=== PATIENT | female | born 1925 | race Asian ===

== ENCOUNTER → 2016-09-19 | Outpatient (CLI) | payer MEDICARE, MEDICAID ==
--- NOTE | 2016-09-19 10:37 | RADIOLOGY REPORT (SQ) ---
EXAM DESCRIPTION: CT HEAD WITHOUT COMPLETED DATE/TIME: 09/19/2016 10:27 am REASON FOR STUDY: HEADACHE (R51) R51 HEADACHE COMPARISON: None. TECHNIQUE: Axial images acquired through the brain without intravenous contrast. Images reviewed wi th bone, brain and subdural windows. Images stored on PACS. All CT scanners at this facility use dose modulation, iterative reconstruction, and/or weight based d osing when appropriate to reduce radiation dose to as low as reasonably achievable (ALARA). [facility]: Dose Right [facility]: CareDose [facility]: Dose Right [facility]: Teradose 4D [facility]: Smart Red [facility] RADIATION DOSE: Up-to-date CT equipment and radiation dose reduction techniques were employed. CTDIv ol: 49.0 mGy. DLP: 881 mGy-cm. mGy. LIMITATIONS: None. FINDINGS: VENTRICLES: Prominent. CEREBRUM: No masses. No hemorrhage. No midline shift. Areas of low density in the white matter mos t likely due to chronic micro-vascular ischemic change. 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 CEREBELLUM: No masses. No hemorrhage. No alteration of density. No evidence for acute infarction. EXTRAAXIAL SPACES: Mild age-related involutional change. No fluid collections. No masses. ORBITS AND GLOBE: No intra- or extraconal masses. Normal contour of globe without masses. CALVARIUM: No fracture. PARANASAL SINUSES: No fluid or mucosal thickening. SOFT TISSUES: No mass or hematoma. OTHER: No other significant finding. IMPRESSION: MILD CHRONIC CHANGES OF ATROPHY AND MICROVASCULAR ISCHEMIA. NO ACUTE PROCESS. TECHNICAL DOCUMENTATION: JOB ID: [id number] Quality ID # [id number]: Final reports with documentation of one or more dose reduction techniques (e.g., Au tomated exposure control, adjustment of the mA and/or kV according to patient size, use of iterative reconstruction technique) 2010 [employer]- All Rights Reserved
--- NOTE | 2016-09-19 11:02 | RADIOLOGY REPORT (SQ) ---
EXAM DESCRIPTION: CHEST PA/LAT COMPLETED DATE/TIME: 09/19/2016 10:36 am REASON FOR STUDY: CHEST PAIN (R07.9) COMPARISON: None. EXAM PARAMETERS: NUMBER OF VIEWS: two views TECHNIQUE: Digital Frontal and Lateral radiographic views of the chest acquired. RADIATION DOSE: NA LIMITATIONS: none FINDINGS: LUNGS AND PLEURA: No opacities, masses or pneumothorax. No pleural effusion. MEDIASTINUM AND HILAR STRUCTURES: No masses or contour abnormalities. HEART AND VASCULAR STRUCTURES: Heart normal size. No evidence for failure. Tortuous calcified thora cic aorta is identified BONES: No acute findings. HARDWARE: None in the chest. OTHER: No other significant finding. IMPRESSION: NO SIGNIFICANT RADIOGRAPHIC FINDING IN THE CHEST. TECHNICAL DOCUMENTATION: JOB ID: [id number] [employer]- All Rights Reserved
--- NOTE | 2016-09-19 11:06 | RADIOLOGY REPORT (SQ) ---
EXAM DESCRIPTION: RIBS RIGHT W/O PA CHEST COMPLETED DATE/TIME: 09/19/2016 10:36 am REASON FOR STUDY: CHEST PAIN (R07.9) R51 HEADACHE COMPARISON: None. NUMBER OF VIEWS: Two views TECHNIQUE: Images acquired of the right ribs in the area of focal concern. LIMITATIONS: None. FINDINGS: RIBS: No acute displaced fracture. No worrisome bone lesions. LUNGS: Limited exam. No obvious pneumothorax. No pleural effusion. OTHER: No other significant finding. IMPRESSION: NO ACUTE DISPLACED RIB FRACTURE. COMMENT: SITE OF TRAUMA/COMPLAINT MARKED/STAMP COMPLETED: No TECHNICAL DOCUMENTATION: JOB ID: [id number] [employer]- All Rights Reserved
== END ==
LOC: RAD 09:59
PROVIDERS: ATTEND Internal Medicine
DX: R51 Headache (principal); R07.9 Chest pain, unspecified
CPT/HCPCS: 70450; 71020

== ENCOUNTER 2016-09-29 17:49 | Inpatient (IN) | payer MEDICARE, MEDICAID ==
[2016-09-29] MEDS ORDERED: ONDANSETRON HCL INJ/PF 4 MG/2 ML SDV IV ONE (18:33)
[2016-09-29] MEDS ORDERED: NORMAL SALINE 1000 ML 250 ML IV ONE (18:33)
--- NOTE | 2016-09-29 18:33 | ER Document Report ---
ED General - General Information source: Patient TRAVEL OUTSIDE OF THE [place] IN LAST 30 DAYS: No - HPI Associated symptoms: Other - see above <TI MAJANO - Last Filed: 09/29/16 20:50> <KEVIN EVANS - Last Filed: 09/29/16 22:32> - General Stated Complaint: GENERAL WEAKNESS/COFUSION Time Seen by Provider: 09/29/16 18:13 Notes: Patient is an 89 year old female who presents to the ED with complaints of dizziness, weakness, nausea and superpubic abominal pain with onset today. History is limited. (TI MAJANO) - Related Data Allergies/Adverse Reactions: No Known Allergies Allergy (Verified 10/23/13 19:15) Home Medications: Current Home Medications Hydrochlorothiazide 25 mg PO DAILY 09/29/16 [History] Losartan Potassium [Cozaar 100 mg Tablet] 100 mg PO DAILY 09/29/16 [History] Past Medical History - General Information source: Patient - Social History Smoking Status: Never Smoker Frequency of alcohol use: None Drug Abuse: None Family History: Reviewed & Not Pertinent - Past Medical History Cardiac Medical History: Reports: Hx Coronary Artery Disease, Hx Hypertension Psychiatric Medical History: Denies: Hx Depression - Immunizations Hx Diphtheria, Pertussis, Tetanus Vaccination: Yes Hx Pneumococcal Vaccination: 10/25/13 <TI MAJANO - Last Filed: 09/29/16 20:50> Review of Systems - Review of Systems Constitutional: See HPI, Weakness EENT: No symptoms reported Cardiovascular: See HPI, Dizziness Respiratory: No symptoms reported Gastrointestinal: See HPI, Abdominal pain, Nausea Genitourinary: No symptoms reported Female Genitourinary: No symptoms reported Musculoskeletal: No symptoms reported Skin: No symptoms reported Hematologic/Lymphatic: No symptoms reported Neurological/Psychological: See HPI, Weakness <TI MAJANO - Last Filed: 09/29/16 20:50> Physical Exam <TI MAJANO - Last Filed: 09/29/16 20:50> <KEVIN EVANS - Last Filed: 09/29/16 22:32> - Vital signs Vitals: Resp Pulse Ox 22 H 99 09/29/16 18:28 09/29/16 18:28 - Notes Notes: GENERAL: Well-appearing, well nourished and in no acute distress. HEAD: Normocephalic, atraumatic. Eyes: Pupils equal, round, and reactive to light. Extraocular movements intact. ENT: Oral mucosa moist, tongue midline. NECK: Full range of motion. Supple without lymphadenopathy. LUNGS: Clear to auscultation bilaterally, no wheezes, rales, or rhonchi. No respiratory distress. HEART: Regular rate and rhythm. No murmurs, gallops, or rubs. ABDOMEN: Tender in lower abdomen. Non-distended. Bowel sounds present in all 4 quadrants but decreased. EXTREMITIES: Normal ROM. No Edema. NEUROLOGICAL: Alert and oriented x3. Normal speech. No focal neurological deficits. PSYCH: Normal affect, normal mood. SKIN: Skin is warm and dry to the touch. (TI MAJANO) Course - Laboratory Result Diagrams: 09/29/16 18:55 09/29/16 18:55 - Consults Dr. Pereira Time consulted: 20:50 <TI MAJANO - Last Filed: 09/29/16 20:50> - Laboratory Result Diagrams: 09/29/16 18:55 09/29/16 18:55 - Diagnostic Test Radiology reviewed: Image reviewed, Reports reviewed - Acute abdominal series shows constipation - EKG Interpretation by Wi EKG shows normal: Sinus rhythm, [place], Intervals, ST-T Waves. abnormal: QRS Complexes - Inferior and anterior Q wave Rate: Normal - 95 Rhythm: NSR When compared to previous EKG there are: No significant change <KEVIN EVANS - Last Filed: 09/29/16 22:32> - Vital Signs Vital signs: Temp Pulse Resp BP Pulse Ox 26 H 122/53 L 99 09/29/16 22:01 09/29/16 22:01 09/29/16 22:01 - Laboratory Laboratory results interpreted by nd: 09/29/16 09/29/16 09/29/16 18:55 18:55 18:55 WBC 14.3 H RBC 3.43 L Hgb 11.2 L Hct 32.6 L Seg Neuts % (Manual) 91 H Lymphocytes % (Manual) 2 L Abs Neuts (Manual) 13.4 H Abs Lymphs (Manual) 0.3 L Sodium 120.1 L* Chloride 87 L Carbon Dioxide 20 L BUN 28 H Glucose 144 H Serum Osmolality Magnesium Total Bilirubin 1.5 H AST 42 H Creatine Kinase 655 H CK-MB (CK-2) 7.60 H Amylase TSH Urine Protein Urine Ketones Urine Blood Urine Nitrite Ur Leukocyte Esterase Protein/Creatinin Ratio Urine Total Protein 09/29/16 09/29/16 09/29/16 18:55 18:55 18:55 WBC RBC Hgb Hct Seg Neuts % (Manual) Lymphocytes % (Manual) Abs Neuts (Manual) Abs Lymphs (Manual) Sodium Chloride Carbon Dioxide BUN Glucose Serum Osmolality 258 L Magnesium 1.5 L Total Bilirubin AST Creatine Kinase CK-MB (CK-2) Amylase 116 H TSH 6.71 H Urine Protein Urine Ketones Urine Blood Urine Nitrite Ur Leukocyte Esterase Protein/Creatinin Ratio Urine Total Protein 09/29/16 09/29/16 19:22 19:22 WBC RBC Hgb Hct Seg Neuts % (Manual) Lymphocytes % (Manual) Abs Neuts (Manual) Abs Lymphs (Manual) Sodium Chloride Carbon Dioxide BUN Glucose Serum Osmolality Magnesium Total Bilirubin AST Creatine Kinase CK-MB (CK-2) Amylase TSH Urine Protein 30 H Urine Ketones 20 H Urine Blood SMALL H Urine Nitrite POSITIVE H Ur Leukocyte Esterase SMALL H Protein/Creatinin Ratio 0.9 H Urine Total Protein 55.2 H - Consults Dr. Pereira Reason for consultation: 09/29/16 20:50 Discussed patient. Patient is accepted for admission to IMCU. (TI MAJANO) Discharge <TI MAJANO - Last Filed: 09/29/16 20:50> - Discharge Admitting Provider: [facility] Unit Admitted: IMCU <KEVIN EVANS - Last Filed: 09/29/16 22:32> - Discharge Clinical Impression: Hyponatremia, Confusion Urinary tract infection Qualifiers: Urinary tract infection type: site unspecified Hematuria presence: with hematuria Qualified Code(s): N39.0 - Urinary tract infection, site not specified ; R31.9 - Hematuria, unspecified Abdominal pain Qualifiers: Abdominal location: lower abdomen, unspecified Qualified Code(s): R10.30 - Lower abdominal pain, unspecified Constipation Qualifiers: Constipation type: unspecified constipation type Qualified Code(s): K59.00 - Constipation, unspecified Rhabdomyolysis Qualifiers: Rhabdomyolysis type: non-traumatic Qualified Code(s): M62.82 - Rhabdomyolysis Condition: Stable Disposition: ADMITTED INPATIENT Scribe Attestation: 09/29/16 20:49 I personally performed the services described in the documentation, reviewed and edited the documentation which was dictated to the scribe in my presence, and it accurately records my words and actions. (KEVIN EVANS) Scribe Documentation - Scribe Written by Maryam:: maryam Terrazas, 09/29/2016, 1839 acting as scribe for :: [place] <TI MAJANO - Last Filed: 09/29/16 20:50>
[2016-09-29 19:39] LABS: ALANINE AMINOTRANSFERASE 34 U/L (9-52); ALBUMIN 3.7 g/dL (3.5-5.0); ALKALINE PHOSPHATASE 86 U/L (38-126); ASPARTATE AMINO TRANSFERASE 42 U/L (14-36); BILIRUBIN,DIRECT 0.3 mg/dL (0.0-0.4); BILIRUBIN,TOTAL 1.5 mg/dL (0.2-1.3); BLOOD UREA NITROGEN 28 mg/dL (7-20); CALCIUM 8.4 mg/dL (8.4-10.2); CARBON DIOXIDE 20 mmol/L (22-30); CHLORIDE 87 mmol/L (98-107); CREATINE KINASE 655 U/L (30-135); CREATININE RESULT 0.81 mg/dL (0.52-1.25); GLUCOSE 144 mg/dL (75-110); POTASSIUM 4.2 mmol/L (3.6-5.0); TOTAL PROTEIN 6.7 g/dL (6.3-8.2)
[2016-09-29 19:40] LABS: APPEARANCE,URINE CLOUDY; BILIRUBIN,URINE NEGATIVE (NEGATIVE); GLUCOSE, URINE NEGATIVE (NEGATIVE); KETONES,URINE 20 mg/dL (NEGATIVE); LEUKOCYTE ESTERASE,URINE SMALL (NEGATIVE); NITRITE,URINE POSITIVE (NEGATIVE); PROTEIN,URINE 30 mg/dL (NEGATIVE); URINE SPECIFIC GRAVITY 1.012; UROBILINOGEN,URINE NEGATIVE mg/dL (<2.0)
[2016-09-29 19:42] LABS: HEMATOCRIT 32.6 % (36.0-47.0); HEMOGLOBIN 11.2 g/dL (12.0-15.5); MEAN CORPUSCULAR HEMOGLOBIN 32.7 pg (27.0-33.4); MEAN CORPUSCULAR HGB CONC 34.4 g/dL (32.0-36.0); MEAN CORPUSCULAR VOLUME 95 fl (80-97); RED BLOOD COUNT 3.43 10^6/uL (3.72-5.28); RED CELL DISTRIBUTION WIDTH 13.9 % (11.5-14.0); WHITE BLOOD COUNT 14.3 10^3/uL (4.0-10.5)
[2016-09-29 19:43] LABS: ANION GAP 13 (5-19)
[2016-09-29 19:45] LABS: BAND NEUTROPHILS % (MANUAL) 3 % (3-5); BASOPHILS % (MANUAL) 0 % (0-2); EOSINOPHILS % (MANUAL) 0 % (0-6); LYMPHOCYTES % (MANUAL) 2 % (13-45); TOTAL CELLS COUNTED 100
[2016-09-29 19:46] LABS: PLATELET CLUMPS PRESENT; RBC MORPHOLOGY COMMENT NORMO-CYTIC/CHROMIC
[2016-09-29 19:51] LABS: CREATINE KINASE MB 7.6 ng/mL (<4.55)
[2016-09-29 20:15] LABS: SODIUM 120.1 mmol/L (137-145); TROPONIN I 0.04 ng/mL
--- NOTE | 2016-09-29 20:21 | RADIOLOGY REPORT (SQ) ---
EXAM DESCRIPTION: ACUTE ABDOMEN SERIES COMPLETED DATE/TIME: 09/29/2016 7:54 pm REASON FOR STUDY: NAUSEA, DIZZY, ABD PAIN COMPARISON: None. NUMBER OF VIEWS: Three views. TECHNIQUE: Frontal chest, supine abdomen and upright/decubitus abdomen radiographic images acquired. LIMITATIONS: None. FINDINGS: CHEST: Lungs clear of infiltrates. FREE AIR: None. No abnormal gas collections. BOWEL GAS PATTERN: Nonobstructive pattern. No dilated loops or air fluid levels. CALCIFICATIONS: No suspicious calcifications. HARDWARE: None in the abdomen. SOFT TISSUES: No gross mass or suggestion of organomegaly. BONES: No acute fracture. No worrisome bone lesions. OTHER: No other significant finding. IMPRESSION: NO RADIOGRAPHIC EVIDENCE FOR ACUTE ABDOMINAL DISEASE. TECHNICAL DOCUMENTATION: JOB ID: [id number] [employer]- All Rights Reserved
[2016-09-29] MEDS ORDERED: CEFTRIAXONE 1 GM/D5W RTU 50 ML IV ONE (20:49)
[2016-09-29 21:27] LABS: PROTHROMBIN TIME 14.3 SEC (11.4-15.4)
[2016-09-29 21:28] LABS: PARTIAL THROMBOPLASTIN TIME 33.4 SEC (23.5-35.8)
[2016-09-29 21:42] LABS: URINE CREATININE 59.8 mg/dL (15-278); URINE PROTEIN 55.2 mg/dL (<12)
[2016-09-29 21:55] LABS: LIPASE 101.5 U/L (23-300); MAGNESIUM 1.5 mg/dL (1.6-2.3); PHOSPHORUS 3.1 mg/dL (2.5-4.5)
[2016-09-29 22:26] LABS: THYROID STIMULATING HORMONE 6.71 uIU/mL (0.47-4.68)
[2016-09-29 22:32] LABS: CREATINE KINASE MB 8.15 ng/mL (<4.55); TROPONIN I 0.048 ng/mL
[2016-09-29 23:16] LABS: URINE POTASSIUM 80.6 mmol/L (22-164)
[2016-09-30 04:35] LABS: HEMATOCRIT 32.9 % (36.0-47.0); HEMOGLOBIN 11.5 g/dL (12.0-15.5); HGB HCT DIFFERENCE 1.6; MEAN CORPUSCULAR VOLUME 97 fl (80-97); RED BLOOD COUNT 3.39 10^6/uL (3.72-5.28); RED CELL DISTRIBUTION WIDTH 13.8 % (11.5-14.0); WHITE BLOOD COUNT 15.4 10^3/uL (4.0-10.5)
[2016-09-30 04:41] LABS: ALANINE AMINOTRANSFERASE 34 U/L (9-52); ALBUMIN 3.2 g/dL (3.5-5.0); ALKALINE PHOSPHATASE 72 U/L (38-126); ANION GAP 11 (5-19); ASPARTATE AMINO TRANSFERASE 40 U/L (14-36); BILIRUBIN,DIRECT 0.3 mg/dL (0.0-0.4); BILIRUBIN,TOTAL 1.4 mg/dL (0.2-1.3); BLOOD UREA NITROGEN 24 mg/dL (7-20); CALCIUM 8.1 mg/dL (8.4-10.2); CARBON DIOXIDE 20 mmol/L (22-30); CHLORIDE 90 mmol/L (98-107); CHOLESTEROL 161.66 mg/dL (0-200); CREATINE KINASE 707 U/L (30-135); CREATININE RESULT 0.77 mg/dL (0.52-1.25); Direct HDL 66 mg/dL (>40); GLUCOSE 137 mg/dL (75-110); TOTAL PROTEIN 6.2 g/dL (6.3-8.2); TRIGLYCERIDES 42 mg/dL (<150)
[2016-09-30 04:53] LABS: CREATINE KINASE MB 8.73 ng/mL (<4.55); DIRECT LDL 88 mg/dL (<100); TROPONIN I 0.035 ng/mL
[2016-09-30 04:59] LABS: BAND NEUTROPHILS % (MANUAL) 8 % (3-5); BASOPHILS % (MANUAL) 0 % (0-2); EOSINOPHILS % (MANUAL) 0 % (0-6); LYMPHOCYTES % (MANUAL) 3 % (13-45); TOTAL CELLS COUNTED 100
[2016-09-30 05:02] LABS: RBC MORPHOLOGY COMMENT NORMO-CYTIC/CHROMIC; TOXIC GRANULATION SLIGHT; TOXIC VACUOLATION PRESENT
--- NOTE | 2016-09-30 08:09 | EKG REPORT ---
SEVERITY:- ABNORMAL ECG - SINUS RHYTHM INFERIOR INFARCT, OLD CONSIDER ANTERIOR INFARCT BORDERLINE PROLONGED QT INTERVAL : Confirmed by: Kt Shannon MD 30-Sep-2016 08:08:39
[2016-09-30] MEDS: CEFTRIAXONE 1 GM/D5W RTU 50 ML IV SCH (09:16)
[2016-09-30] MEDS: NORMAL SALINE 1000 ML 1,000 ML IV PRN (09:24)
[2016-09-30] MEDS: PHENAZOPYRIDINE HCL 200 MG TABLET PO SCH ×3 (09:31→17:38)
[2016-09-30 09:59] LABS: CREATINE KINASE MB 10.2 ng/mL (<4.55); TROPONIN I 0.03 ng/mL
[2016-09-30] MEDS: ENOXAPARIN SODIUM INJ 40 MG/0.4 ML DISP.SYRIN SUBCUT SCH (11:45)
[2016-09-30] MEDS ORDERED: LEVOTHYROXINE SODIUM 0.025 MG TABLET PO ONE (17:30)
[2016-09-30] MEDS ORDERED: MAGNESIUM OXIDE 400 MG TABLET PO ONE (20:00)
--- NOTE | 2016-09-30 20:42 | PDOC H&P ---
History of Present Illness Admission Date/PCP: 09/29/16 21:06 EBONY CHATTERJEE MD History of Present Illness: KAROLINE KITCHEN is a 89 year old female, She has a history of hypertension, generalized osteoarthritis, mild cognitive impairment she was brought to the emergency room for evaluation of dizziness, weakness, nausea and suprapubic abdominal pain with 1 day duration. She is a poor historian so history taking was a challenge in the emergency room she had blood drawn for metabolic and hemogram evaluation, the serum sodium was 120.1, WBC was 14.3 the urine drug screen was positive for protein, ketones, nitrites, blood and the leukocyte esterase test was positive as well I was called from the emergency room about this patient and the need for hospital admission. On examination of this patient, she is clinically euvolemic, the serum osmolality was low at 258. 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 both patient is pleasantly confused on the sodium is 120 with UTI Past Medical History Cardiac Medical History: Reports: Hypertension Musculoskeltal Medical History: Reports: Arthritis Social History Smoking Status: Never Smoker Frequency of Alcohol Use: None Hx Recreational Drug Use: No Hx Prescription Drug Abuse: No Family History Family History: Reviewed & Not Pertinent Parental Family History Reviewed: Yes Children Family History Reviewed: Yes Sibling(s) Family History Reviewed.: Yes Medication/Allergy Home Medications: Hydrochlorothiazide 25 mg PO DAILY 09/29/16 Losartan Potassium [Cozaar 100 mg Tablet] 100 mg PO DAILY 09/29/16 Allergies/Adverse Reactions: No Known Allergies Allergy (Verified 10/23/13 19:15) Review of Systems ROS unobtainable: Due to mental status Gastrointestinal: PRESENT: abdominal pain Physical Exam Vital Signs: Temp Pulse Resp BP Pulse Ox 98.6 F 74 18 128/40 H 95 09/30/16 15:15 09/30/16 15:15 09/30/16 15:15 09/30/16 15:15 09/30/16 15:15 Intake & Output 09/29/16 09/30/16 10/01/16 06:59 06:59 06:59 Intake Total 350 490 Balance 350 490 Weight 56.8 kg General appearance: PRESENT: no acute distress Head exam: PRESENT: atraumatic, normocephalic Eye exam: PRESENT: conjunctiva pink, EOMI, PERRLA Mouth exam: PRESENT: moist, tongue midline Neck exam: PRESENT: full ROM Respiratory exam: PRESENT: clear to auscultation noe Cardiovascular exam: PRESENT: RRR, +S1, +S2 Pulses: PRESENT: normal dorsalis pedis pul, +2 pedal pulses bilateral Vascular exam: PRESENT: normal capillary refill GI/Abdominal exam: PRESENT: normal bowel sounds, soft, tenderness - There is tenderness in the suprapubic area of the abdomen Rectal exam: PRESENT: deferred Extremities exam: ABSENT: full ROM, left AKA, right AKA, left BKA, right BKA, calf tenderness, joint swelling, pedal edema, tenderness, other Neurological exam: PRESENT: alert Psychiatric exam: ABSENT: homicidal ideation, suicidal ideation Skin exam: PRESENT: dry, intact, warm. ABSENT: cyanosis, rash Results Laboratory Results: 09/30/16 03:45 09/30/16 03:45 09/29/16 09/30/16 09/30/16 21:40 03:45 03:45 WBC 15.4 H RBC 3.39 L Hgb 11.5 L Hct 32.9 L MCV 97 MCH 34.0 H MCHC 35.0 RDW 13.8 Plt Count 137 L Seg Neutrophils % Not Reportable Lymphocytes % Not Reportable Monocytes % Not Reportable Eosinophils % Not Reportable Basophils % Not Reportable Absolute Neutrophils Not Reportable Absolute Lymphocytes Not Reportable Absolute Monocytes Not Reportable Absolute Eosinophils Not Reportable Absolute Basophils Not Reportable Sodium 121.0 L Potassium 4.0 Chloride 90 L Carbon Dioxide 20 L Anion Gap 11 BUN 24 H Creatinine 0.77 Est GFR ( Amer) > 60 Est GFR (Non-Af Amer) > 60 Glucose 137 H Calcium 8.1 L Total Bilirubin 1.4 H AST 40 H ALT 34 Alkaline Phosphatase 72 Ammonia < 8.7 L Total Protein 6.2 L Albumin 3.2 L Triglycerides 42 Cholesterol 161.66 LDL Cholesterol Direct 88 VLDL Cholesterol 8.0 L HDL Cholesterol 66 09/29/16 09/29/16 09/30/16 21:40 21:40 03:45 Creatine Kinase 695 H CK-MB (CK-2) 8.15 H 8.73 H Troponin I 0.048 0.035 09/30/16 09/30/16 09/30/16 03:45 09:24 09:24 Creatine Kinase 707 H 645 H CK-MB (CK-2) 10.20 H Troponin I 0.030 Impressions: Acute Abdomen Series 09/29/16 18:34 IMPRESSION: NO RADIOGRAPHIC EVIDENCE FOR ACUTE ABDOMINAL DISEASE. 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
[2016-10-01 06:16] LABS: ABSOLUTE EOSINOPHILS # (AUTO) 0.1 10^3/uL (0.0-0.6); BASOPHILS % (AUTO) 0.1 % (0-2); EOSINOPHILS % (AUTO) 0.9 % (0-6); LYMPHOCYTES % (AUTO) 9.3 % (13-45); MEAN CORPUSCULAR HEMOGLOBIN 33.7 pg (27.0-33.4); MEAN CORPUSCULAR HGB CONC 34.3 g/dL (32.0-36.0); MEAN CORPUSCULAR VOLUME 98 fl (80-97); MONOCYTES % (AUTO) 9.1 % (3-13); RED BLOOD COUNT 3.26 10^6/uL (3.72-5.28); RED CELL DISTRIBUTION WIDTH 14.2 % (11.5-14.0); SEGMENTED NEUTROPHILS % (AUTO) 80.6 % (42-78); WHITE BLOOD COUNT 11.2 10^3/uL (4.0-10.5)
[2016-10-01 06:32] LABS: ALANINE AMINOTRANSFERASE 33 U/L (9-52); ALBUMIN 2.9 g/dL (3.5-5.0); ALKALINE PHOSPHATASE 68 U/L (38-126); ANION GAP 11 (5-19); ASPARTATE AMINO TRANSFERASE 33 U/L (14-36); BILIRUBIN,TOTAL 0.9 mg/dL (0.2-1.3); BLOOD UREA NITROGEN 16 mg/dL (7-20); CALCIUM 7.2 mg/dL (8.4-10.2); CARBON DIOXIDE 22 mmol/L (22-30); CHLORIDE 95 mmol/L (98-107); CREATININE RESULT 0.71 mg/dL (0.52-1.25); GLUCOSE 86 mg/dL (75-110); POTASSIUM 3.6 mmol/L (3.6-5.0); SODIUM 128.3 mmol/L (137-145); TOTAL PROTEIN 5.2 g/dL (6.3-8.2)
[2016-10-01] MEDS: LEVOTHYROXINE SODIUM 0.025 MG TABLET PO SCH (08:24)
[2016-10-01] MEDS: CEFTRIAXONE 1 GM/D5W RTU 50 ML IV SCH (11:26)
[2016-10-01] MEDS: ENOXAPARIN SODIUM INJ 40 MG/0.4 ML DISP.SYRIN SUBCUT SCH (11:26)
[2016-10-01] MEDS: PHENAZOPYRIDINE HCL 200 MG TABLET PO SCH ×3 (11:26→17:54)
[2016-10-01] MEDS: MAGNESIUM OXIDE 400 MG TABLET PO SCH (11:27)
[2016-10-01] MEDS: NORMAL SALINE 1000 ML 1,000 ML IV PRN (13:27)
[2016-10-01] MEDS ORDERED: ETHYL CHLORIDE SPRAY 103.5 ML/BOTTLE TP PRN (14:30)
[2016-10-01] MEDS ORDERED: METHYLPREDNISOLONE ACETATE INJ 80 MG/1 ML VIAL IM PRN (14:30)
[2016-10-01] MEDS ORDERED: LIDOCAINE 1% INJ-PF (10 MG/ML) 30 ML SDV INJ PRN (14:30)
--- NOTE | 2016-10-01 16:37 | Operative Report ---
Operative Report DATE OF SURGERY: 10/01/16 Operative Report: The skin of the right shoulder was cleansed with alcohol, 80 mg of Depo-Medrol with 5 cc of lidocaine 1% was injected into the shoulder through the subacromial space via the anterior approach without complication, patient tolerated the procedure very well PREOPERATIVE DIAGNOSIS: Osteoarthritis of right shoulder OPERATION: Arthrocentesis of right shoulder ANESTHESIA: Local COMPLICATIONS: None
--- NOTE | 2016-10-01 16:48 | PDOC PROGRESS REPORT ---
Subjective Progress Note for:: 10/01/16 Subjective:: Patient was seen by the bedside, she is more alert, responsive, orientated to time place and person. She complained of pain in the right shoulder, there is tenderness on palpation of the AC joint area with limitation of range of motion of the joints. She was injected with Depo-Medrol without without complication today. Urine culture is growing gram-negative rods the specific pathogen is not yet known Physical Exam Vital Signs: Temp Pulse Resp BP Pulse Ox 98.4 F 93 19 134/64 H 96 10/01/16 16:00 10/01/16 16:00 10/01/16 16:00 10/01/16 16:00 10/01/16 16:00 Intake & Output 09/30/16 10/01/16 10/02/16 06:59 06:59 06:59 Intake Total 350 1090 480 Output Total 1100 200 Balance 350 -10 280 Weight 56.8 kg 55.3 kg General appearance: PRESENT: no acute distress Eye exam: PRESENT: PERRLA Respiratory exam: PRESENT: clear to auscultation noe Cardiovascular exam: PRESENT: +S1, +S2 GI/Abdominal exam: PRESENT: soft Extremities exam: PRESENT: tenderness - There is tenderness of the right shoulder Neurological exam: PRESENT: alert Results Laboratory Results: 10/01/16 05:22 10/01/16 05:22 10/01/16 10/01/16 05:22 05:22 WBC 11.2 H RBC 3.26 L Hgb 11.0 L Hct 32.0 L MCV 98 H MCH 33.7 H MCHC 34.3 RDW 14.2 H Plt Count 144 L Seg Neutrophils % 80.6 H Lymphocytes % 9.3 L Monocytes % 9.1 Eosinophils % 0.9 Basophils % 0.1 Absolute Neutrophils 9.0 H Absolute Lymphocytes 1.0 Absolute Monocytes 1.0 Absolute Eosinophils 0.1 Absolute Basophils 0.0 Sodium 128.3 L Potassium 3.6 Chloride 95 L Carbon Dioxide 22 Anion Gap 11 BUN 16 Creatinine 0.71 Est GFR ( Amer) > 60 Est GFR (Non-Af Amer) > 60 Glucose 86 Calcium 7.2 L Total Bilirubin 0.9 AST 33 ALT 33 Alkaline Phosphatase 68 Total Protein 5.2 L Albumin 2.9 L 09/29/16 09/29/16 09/30/16 21:40 21:40 03:45 Creatine Kinase 695 H CK-MB (CK-2) 8.15 H 8.73 H Troponin I 0.048 0.035 09/30/16 09/30/16 09/30/16 03:45 09:24 09:24 Creatine Kinase 707 H 645 H CK-MB (CK-2) 10.20 H Troponin I 0.030 Impressions: Acute Abdomen Series 09/29/16 18:34 IMPRESSION: NO RADIOGRAPHIC EVIDENCE FOR ACUTE ABDOMINAL DISEASE. 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 Is this a current diagnosis for this admission?: Yes (3) Rhabdomyolysis Qualifiers: Rhabdomyolysis type: non-traumatic Qualified Code(s): M62.82 - Rhabdomyolysis Is this a current diagnosis for this admission?: Yes (4) Metabolic encephalopathy Is this a current diagnosis for this admission?: Yes (5) Hyponatremia Is this a current diagnosis for this admission?: Yes (6) Pain, joint, shoulder, right Is this a current diagnosis for this admission?: YesPlan: Arthrocentesis was done of the right shoulder, 80 mg of Depo-Medrol with 5 cc lidocaine was injected into the right shoulder without complication - Plan Summary Plan Summary: Patient continues to improve on present medication
[2016-10-02 05:28] LABS: ABSOLUTE LYMPHOCYTES (AUTO) 0.6 10^3/uL (0.5-4.7); ABSOLUTE MONOCYTES (AUTO) 0.6 10^3/uL (0.1-1.4); ABSOLUTE NEUT (AUTO) 7.9 10^3/uL (1.7-8.2); BASOPHILS % (AUTO) 0.1 % (0-2); EOSINOPHILS % (AUTO) 0.1 % (0-6); HEMATOCRIT 29.7 % (36.0-47.0); HEMOGLOBIN 10.3 g/dL (12.0-15.5); HGB HCT DIFFERENCE 1.2; LYMPHOCYTES % (AUTO) 6.1 % (13-45); MEAN CORPUSCULAR HEMOGLOBIN 33.8 pg (27.0-33.4); MEAN CORPUSCULAR HGB CONC 34.7 g/dL (32.0-36.0); MEAN CORPUSCULAR VOLUME 97 fl (80-97); MONOCYTES % (AUTO) 6.5 % (3-13); RED BLOOD COUNT 3.05 10^6/uL (3.72-5.28); RED CELL DISTRIBUTION WIDTH 14.5 % (11.5-14.0); SEGMENTED NEUTROPHILS % (AUTO) 87.2 % (42-78)
[2016-10-02 05:44] LABS: ALANINE AMINOTRANSFERASE 32 U/L (9-52); ALBUMIN 2.7 g/dL (3.5-5.0); ALKALINE PHOSPHATASE 73 U/L (38-126); ANION GAP 8 (5-19); ASPARTATE AMINO TRANSFERASE 35 U/L (14-36); BILIRUBIN,TOTAL 0.6 mg/dL (0.2-1.3); BLOOD UREA NITROGEN 12 mg/dL (7-20); CALCIUM 8.2 mg/dL (8.4-10.2); CARBON DIOXIDE 23 mmol/L (22-30); CHLORIDE 106 mmol/L (98-107); CREATININE RESULT 0.69 mg/dL (0.52-1.25); GLUCOSE 117 mg/dL (75-110); POTASSIUM 3.6 mmol/L (3.6-5.0); TOTAL PROTEIN 5.4 g/dL (6.3-8.2)
[2016-10-02] MEDS: LEVOTHYROXINE SODIUM 0.025 MG TABLET PO SCH (08:47)
[2016-10-02] MEDS: MAGNESIUM OXIDE 400 MG TABLET PO SCH (10:26)
[2016-10-02] MEDS: ENOXAPARIN SODIUM INJ 40 MG/0.4 ML DISP.SYRIN SUBCUT SCH (10:26)
[2016-10-02] MEDS: NORMAL SALINE 1000 ML 1,000 ML IV PRN (10:26)
[2016-10-02] MEDS: CEFTRIAXONE 1 GM/D5W RTU 50 ML IV SCH (10:26)
[2016-10-02] MEDS ORDERED: NA PHOS,M-B/NA PHOS,DI-BA (ADULT) 133 ML ENEMA PR ONE (17:54)
--- NOTE | 2016-10-02 18:58 | PDOC PROGRESS REPORT ---
Subjective Progress Note for:: 10/02/16 Subjective:: She was seen by the bedside, yesterday she had Depo-Medrol in the right shoulder , she feels much improved today, there is improved range of motion of the shoulder. she complains of constipation Physical Exam Vital Signs: Temp Pulse Resp BP Pulse Ox 99.1 F 96 17 170/62 H 96 10/02/16 16:00 10/02/16 16:00 10/02/16 16:00 10/02/16 16:00 10/02/16 16:00 Intake & Output 10/01/16 10/02/16 10/03/16 06:59 06:59 06:59 Intake Total 1090 2300 1220 Output Total 1100 400 Balance -10 1900 1220 Weight 55.3 kg 55.4 kg 55.4 kg General appearance: PRESENT: no acute distress Eye exam: PRESENT: PERRLA Respiratory exam: PRESENT: clear to auscultation noe Cardiovascular exam: PRESENT: +S1, +S2 GI/Abdominal exam: PRESENT: soft Extremities exam: PRESENT: other - There is improved range of motion of the shoulder joint Neurological exam: PRESENT: alert Results Laboratory Results: 10/02/16 04:42 10/02/16 04:42 10/02/16 10/02/16 04:42 04:42 WBC 9.0 RBC 3.05 L Hgb 10.3 L Hct 29.7 L MCV 97 MCH 33.8 H MCHC 34.7 RDW 14.5 H Plt Count 152 Seg Neutrophils % 87.2 H Lymphocytes % 6.1 L Monocytes % 6.5 Eosinophils % 0.1 Basophils % 0.1 Absolute Neutrophils 7.9 Absolute Lymphocytes 0.6 Absolute Monocytes 0.6 Absolute Eosinophils 0.0 Absolute Basophils 0.0 Sodium 137.0 Potassium 3.6 Chloride 106 Carbon Dioxide 23 Anion Gap 8 BUN 12 Creatinine 0.69 Est GFR ( Amer) > 60 Est GFR (Non-Af Amer) > 60 Glucose 117 H Calcium 8.2 L Total Bilirubin 0.6 AST 35 ALT 32 Alkaline Phosphatase 73 Total Protein 5.4 L Albumin 2.7 L 09/29/16 09/29/16 09/30/16 21:40 21:40 03:45 Creatine Kinase 695 H CK-MB (CK-2) 8.15 H 8.73 H Troponin I 0.048 0.035 09/30/16 09/30/16 09/30/16 03:45 09:24 09:24 Creatine Kinase 707 H 645 H CK-MB (CK-2) 10.20 H Troponin I 0.030 Impressions: Acute Abdomen Series 09/29/16 18:34 IMPRESSION: NO RADIOGRAPHIC EVIDENCE FOR ACUTE ABDOMINAL DISEASE. 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 Is this a current diagnosis for this admission?: Yes (3) Rhabdomyolysis Qualifiers: Rhabdomyolysis type: non-traumatic Qualified Code(s): M62.82 - Rhabdomyolysis Is this a current diagnosis for this admission?: Yes (4) Metabolic encephalopathy Is this a current diagnosis for this admission?: Yes (5) Hyponatremia Is this a current diagnosis for this admission?: Yes (6) Pain, joint, shoulder, right Is this a current diagnosis for this admission?: Yes (7) Constipation Qualifiers: Constipation type: unspecified constipation type Qualified Code(s): K59.00 - Constipation, unspecified Is this a current diagnosis for this admission?: YesPlan: Fleet enema
[2016-10-03] MEDS ORDERED: LOSARTAN POTASSIUM 50 MG TABLET PO SCH (10:00)
[2016-10-03] MEDS: CEFTRIAXONE 1 GM/D5W RTU 50 ML IV SCH (10:24)
[2016-10-03] MEDS: ENOXAPARIN SODIUM INJ 40 MG/0.4 ML DISP.SYRIN SUBCUT SCH (10:25)
[2016-10-03] MEDS: LEVOTHYROXINE SODIUM 0.025 MG TABLET PO SCH (10:25)
[2016-10-03] MEDS: MAGNESIUM OXIDE 400 MG TABLET PO SCH (10:25)
[2016-10-03 20:38] VITALS: BP 163/55
--- NOTE | 2016-10-03 21:31 | PDOC DISCHARGE SUMMARY ---
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 Is this a current diagnosis for this admission?: Yes (3) Rhabdomyolysis Is this a current diagnosis for this admission?: Yes (4) Metabolic encephalopathy Is this a current diagnosis for this admission?: Yes (5) Hyponatremia Is this a current diagnosis for this admission?: Yes (6) Pain, joint, shoulder, right Is this a current diagnosis for this admission?: Yes (7) Constipation Is this a current diagnosis for this admission?: Yes (8) Escherichia coli urinary tract infection Is this a current diagnosis for this admission?: Yes - Additional Information Discharge Diet: As Tolerated Discharge Activity: Activity As Tolerated, Balance Activity w/Rest Home Medications: Losartan Potassium [Cozaar 100 mg Tablet] 100 mg PO DAILY 09/29/16 Ciprofloxacin HCl [Cipro 500 mg Tablet] 500 mg PO BID #14 tablet 10/03/16 Levothyroxine Sodium [Synthroid 0.025 mg Tablet] 0.025 mg PO QAM #90 tablet 06/16 History of Present Illness History of Present Illness: KAROLINE KITCHEN is a 89 year old female, She has a history of hypertension, generalized osteoarthritis, mild cognitive impairment she was brought to the emergency room for evaluation of dizziness, weakness, nausea and suprapubic abdominal pain with 1 day duration. She is a poor historian so history taking was a challenge in the emergency room she had blood drawn for metabolic and hemogram evaluation, the serum sodium was 120.1, WBC was 14.3 the urine drug screen was positive for protein, ketones, nitrites, blood and the leukocyte esterase test was positive as well I was called from the emergency room about this patient and the need for hospital admission. On examination of this patient, she is clinically euvolemic, the serum osmolality was low at 258. 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 both patient is pleasantly confused on the sodium is 120 with UTI Hospital Course Hospital Course: Patient was admitted for the management of altered mental status due to combination of hyponatremia, urinary tract infection. On admission she had hyponatremia due to SIADH, she also had a UTI due to E. coli that was treated with intra-venous antibiotic. She complained of right shoulder pain with limitation of range of motion of the right shoulder, the right shoulder was injected with 80 mg of Depo-Medrol with 5 cc of lidocaine, anesthesia was achieved with Ethyl chloride spray. Patient regained full alertness, she became oriented to time place and person she also regained full range of motion of the right shoulder after the injection with Depo-Medrol. She had acute cystitis with abdominal pain that was treated with p.o. Pyridium 200 mg 3 times a day for 2 days. Physical Exam Vital Signs: Temp Pulse Resp BP Pulse Ox 98.2 F 115 H 18 170/62 H 98 10/03/16 17:41 10/03/16 17:41 10/03/16 17:41 10/03/16 17:41 10/03/16 17:41 Intake & Output 10/02/16 10/03/16 10/04/16 06:59 06:59 06:59 Intake Total 2300 1520 286 Output Total 400 Balance 1900 1520 286 Weight 55.4 kg 55.4 kg General appearance: PRESENT: no acute distress, well-developed, well-nourished Head exam: PRESENT: atraumatic, normocephalic Eye exam: PRESENT: conjunctiva pink, EOMI, PERRLA. ABSENT: scleral icterus Ear exam: PRESENT: normal external ear exam Mouth exam: PRESENT: moist, tongue midline Neck exam: PRESENT: full ROM Respiratory exam: PRESENT: clear to auscultation noe Cardiovascular exam: PRESENT: RRR, +S1, +S2 Pulses: PRESENT: normal dorsalis pedis pul, +2 pedal pulses bilateral Vascular exam: PRESENT: normal capillary refill GI/Abdominal exam: PRESENT: normal bowel sounds, soft Rectal exam: PRESENT: deferred Neurological exam: PRESENT: alert, awake, oriented to person, oriented to place , oriented to time, oriented to situation, CN II-XII grossly intact Psychiatric exam: PRESENT: appropriate affect, normal mood Skin exam: PRESENT: dry, intact, warm Results Laboratory Results: 10/02/16 04:42 10/02/16 04:42 09/29/16 09/29/16 09/30/16 21:40 21:40 03:45 Creatine Kinase 695 H CK-MB (CK-2) 8.15 H 8.73 H Troponin I 0.048 0.035 09/30/16 09/30/16 09/30/16 03:45 09:24 09:24 Creatine Kinase 707 H 645 H CK-MB (CK-2) 10.20 H Troponin I 0.030 Impressions: Acute Abdomen Series 09/29/16 18:34 IMPRESSION: NO RADIOGRAPHIC EVIDENCE FOR ACUTE ABDOMINAL DISEASE.
== END 2016-10-03 21:56 | disposition home or self-care (01) | DRG 643 ==
LOC: ER 17:49 → EH 21:06 → 3W 23:59
PROVIDERS: ADMIT Internal Medicine; ATTEND Internal Medicine
PROC: 3E0U33Z Introduction of Anti-inflammatory into Joints, Percutaneous Approach (ICD-10-PCS; principal; 2016-10-01)
PROC: 3E0U3BZ Introduction of Anesthetic Agent into Joints, Percutaneous Approach (ICD-10-PCS; 2016-10-01)
DX: E22.2 Syndrome of inappropriate secretion of antidiuretic hormone (principal); G93.41 Metabolic encephalopathy; M62.82 Rhabdomyolysis; N39.0 Urinary tract infection, site not specified; B96.20 Unspecified Escherichia coli [E. coli] as the cause of diseases classified elsewhere; I10 Essential (primary) hypertension; M15.9 Polyosteoarthritis, unspecified; M25.511 Pain in right shoulder; K59.00 Constipation, unspecified; Z79.899 Other long term (current) drug therapy
CPT/HCPCS: 36415; 74022; 80048; 80053; 80061; 80076; 81001; 82140; 82150; 82550; 82553; 82570; 83036; 83690; 83735; 83880; 83930; 83935; 84100; 84133; 84156; 84300; 84439; 84443; 84484; 85025; 85610; 85730; 87040; 87086; 87088; 87186; 87493; 93005; 93010; 99285; G8978-GP; G8979-GP; J0696; J1650; J2405; J3490; J7030